=== PATIENT | female | born 1995 | race Caucasian/White ===

== ENCOUNTER 2019-07-27 19:18 | Outpatient (CLI) | payer OTHER ==
--- NOTE | 2019-07-29 23:52 | Ultrasound Report ---
Reason: TEST POSITIVE Procedure Date: 07/27/2019 Accession Number: [id number] / [id number] Procedure: US - OB First Trimester CPT Code: Final Report FULL RESULT: EXAM: FIRST TRIMESTER OBSTETRIC ULTRASOUND (Less than 11 weeks) EXAM DATE: 07/27/2019 07:31 PM. CLINICAL HISTORY: TEST POSITIVE. LMP: Unknown. COMPARISONS: None. TECHNIQUE: Transabdominal and transvaginal ultrasound examination with static image documentation. CLINICAL DATES: EGA 9 weeks 2 days with MARIAMA 02/27/2020 based on per ordering physician.. ASSESSMENT: Gestational Sac: Single intrauterine. Embryo: CRL (crown-rump length) 80 mm = 14 weeks 0 days. Cardiac activity: 149 beats per minute. Amniotic fluid: Not accurately assessed at this gestational age. Early placenta: Low anterior terminating approximately 1.6 cm from the internal cervical loss. Other: No perigestational fluid collection demonstrated. MATERNAL STRUCTURES: Uterus: Anteverted. Unremarkable. Cervix: Closed measuring 4.5 cm in length. Right Ovary/Adnexa: The ovary measures 2.1 x 2.1 x 2 cm, volume 4.6 cc. Unremarkable. Left Ovary/Adnexa: The ovary measures 2.2 x 1.9 x 2.2 cm, volume 4.9 cc. Unremarkable. Free Fluid: Trace simple-appearing free fluid in the cul-de-sac, likely physiologic. Other: None. IMPRESSION: 1. Single viable intrauterine at EGA 14 weeks 0 days with MARIAMA 01/25/2020 based on crown-rump length, which is discordant with clinical dates. 2. Assigned dating is MARIAMA 02/27/2020 based on report by ordering physician. Consider redating. 3. The placenta terminates approximately 1.6 cm from the internal cervical os concerning for low lying placenta. Recommend attention on follow-up. RADIA
== END 2019-07-27 19:19 | disposition home or self-care (01) ==
LOC: DI 19:18
PROVIDERS: ATTEND Nurse Practitioner Obstetrics & Gynecology
DX: Z32.01 Encounter for pregnancy test, result positive (principal)
CPT/HCPCS: 76801; 76817

== ENCOUNTER 2019-08-15 07:00 | Outpatient (CLI) | payer OTHER ==
[2019-08-15 15:53] LABS: MUDS CUTOFF CONCENTRATIONS CUTOFF CONC BELOW:
[2019-08-15 16:07] LABS: BILIRUBIN,URINE NEGATIVE (NEGATIVE); GLUCOSE, URINE (UA) NEGATIVE (NEGATIVE); KETONES,URINE (UA) NEGATIVE (NEGATIVE); LEUKOCYTE ESTERASE, URINE SMALL (NEGATIVE); NITRITE,URINE NEGATIVE (NEGATIVE); OCCULT BLOOD,URINE NEGATIVE (NEGATIVE); PROTEIN,URINE NEGATIVE (NEGATIVE); UROBILINOGEN,URINE 0.2 (NORMAL) E.U./dL (NORMAL)
[2019-08-15 16:16] LABS: AMPHETAMINE SCREEN,URINE NEGATIVE (NEGATIVE); BENZODIAZEPINES SCREEN, URINE NEGATIVE (NEGATIVE); COCAINE SCREEN URINE NEGATIVE (NEGATIVE); METHADONE SCREEN, URINE NEGATIVE (NEGATIVE); METHAMPHETAMINES SCREEN, URINE NEGATIVE (NEGATIVE); OPIATE SCREEN, URINE NEGATIVE (NEGATIVE); OXYCODONE SCREEN, URINE NEGATIVE (NEGATIVE); PROPOXYPHENE SCREEN, URINE NEGATIVE (NEGATIVE); TRICYCLIC ANTIDEPRESSANT,URINE NEGATIVE (NEGATIVE)
[2019-08-15 16:18] LABS: BACTERIA,URINE Few /HPF (None Seen); CLARITY,URINE CLEAR (CLEAR); RBC,URINE None Seen /HPF (0-5); SQUAMOUS EPITHELIAL CELL,UR MOD Squamous (<= Few)
== END 2019-08-15 23:59 | disposition home or self-care (01) ==
LOC: LAB.R 07:00
PROVIDERS: ATTEND Nurse Practitioner Obstetrics & Gynecology
DX: Z36.89 Encounter for other specified antenatal screening (principal)
CPT/HCPCS: 80306; 81001; 87086

== ENCOUNTER 2019-09-01 09:49 | Outpatient (CLI) | payer OTHER ==
[2019-09-01 10:19] LABS: BASOPHILS % (AUTO) 0.3 %; EOSINOPHILS # (AUTO) 0.1 10^3/uL (0.0-0.7); EOSINOPHILS % (AUTO) 1.4 %; HGB - HEMOGLOBIN 12.3 g/dL (12.0-16.0); LYMPHOCYTES # (AUTO) 1.4 10^3/uL (1.5-3.5); LYMPHOCYTES % (AUTO) 15.5 %; MEAN CORPUSCULAR HEMOGLOBIN 29.7 pg (27.0-31.0); MEAN CORPUSCULAR HGB CONC 33.3 g/dL (32.0-36.0); MEAN CORPUSCULAR VOLUME 89.1 fL (81.0-99.0); MEAN PLATELET VOLUME 9.7 fL (7.9-10.8); MONOCYTES # (AUTO) 0.6 10^3/uL (0.0-1.0); MONOCYTES % (AUTO) 6.1 %; NEUTROPHILS # (AUTO) 6.9 10^3/uL (1.5-6.6); NEUTROPHILS % (AUTO) 75.8 %; PLT - PLATELET COUNT 198 10^3/uL (130-450); RED BLOOD COUNT 4.14 10^6/uL (4.20-5.40); RED CELL DISTRIBUTION WIDTH 12.4 % (12.0-15.0); WHITE BLOOD COUNT 9.1 x10^3/uL (4.8-10.8)
[2019-09-02 12:29] LABS: HEPATITIS C ANTIBODY NON-REACTIVE (NON-REACTIVE)
[2019-09-02 12:30] LABS: HEPATITIS B SURFACE ANTIGEN NON-REACTIVE (NON-REACTIVE)
[2019-09-02 12:43] LABS: HIV AG/AB 4TH GEN NON-REACTIVE (NON-REACTIVE)
== END 2019-09-01 09:50 | disposition home or self-care (01) ==
LOC: LAB 09:49
PROVIDERS: ATTEND Nurse Practitioner Obstetrics & Gynecology
DX: Z36.89 Encounter for other specified antenatal screening (principal)
CPT/HCPCS: 36415; 81599; 85025; 86762; 86803; 86850; 86900; 86901; 87340; 87389

== ENCOUNTER 2019-09-12 09:57 | Outpatient (CLI) | payer OTHER ==
--- NOTE | 2019-09-14 15:49 | Ultrasound Report ---
Reason: SUPERV OF NORM FIRST , SCREENIN Procedure Date: 09/12/2019 Accession Number: [id number] / [id number] Procedure: US - OB Detailed Eval CPT Code: Final Report FULL RESULT: EXAM: COMPLETE OBSTETRICAL ULTRASOUND EXAM DATE: 09/12/2019 10:36 AM. CLINICAL HISTORY: anatomic survey. COMPARISON: OB FIRST TRIMESTER 07/27/2019 7:31 PM. TECHNIQUE: Real-time sonographic evaluation of the fetus performed by the clerk cashier. Multiple service support representative static images were saved for review. DATING: Established EGA 20 weeks 5 days with MARIAMA 01/25/2020 based on prior ultrasound. EGA 20 weeks 2 days with MARIAMA 6 2120 based on the current ultrasound. GENERAL EVALUATION Elong . Cardiac activity: 143 bpm. movement: Present Presentation: Variable Placenta: Anterior position. No evidence for previa. Umbilical cord: 3 vessel cord. Central placental cord origin. Amniotic fluid: Subjectively normal. MVP 5.9 cm. BIOMETRY Bi-Parietal Diameter (BPD): 4.7 cm, 20 weeks 2 days Head Circumference (HC): 17.7 cm, 20 weeks 1 days Abdominal Circumference (AC): 15.2 cm, 20 weeks 3 days Femur Length (FL): 3.2 cm, 20 weeks 0 days Estimated Weight: 342 g, 21st percentile for 20 weeks 5 days. ANATOMY The intracranial structures, profile, face/nose/lips, spine, 4 chamber heart and outflow tracts, stomach, abdominal wall and cord insertion, diaphragm, kidneys, bladder, and extremities were seen and demonstrate no abnormality. MATERNAL STRUCTURES Uterus: Unremarkable. Cervix: Long and closed. Transabdominal length 4.2 cm. Right ovary/adnexa: Unremarkable. Left ovary/adnexa: Unremarkable. Free fluid: None. IMPRESSION: 1. Leong intrauterine with gestational age 20 weeks 5 days based on first ultrasound. 2. Estimated weight is within expected limits for assigned dating. 3. Normal anatomic survey. No anatomic abnormalities are detected at this time. RADIA
== END 2019-09-12 09:58 | disposition home or self-care (01) ==
LOC: DI 09:57
PROVIDERS: ATTEND Nurse Practitioner Obstetrics & Gynecology
DX: Z34.00 Encounter for supervision of normal first pregnancy, unspecified trimester (principal); Z36.89 Encounter for other specified antenatal screening
CPT/HCPCS: 76811

== ENCOUNTER 2019-10-27 11:27 | Outpatient (CLI) | payer OTHER ==
[2019-10-27 12:49] LABS: HGB - HEMOGLOBIN 11.9 g/dL (12.0-16.0); MEAN CORPUSCULAR HEMOGLOBIN 30.1 pg (27.0-31.0); MEAN CORPUSCULAR HGB CONC 33.5 g/dL (32.0-36.0); MEAN CORPUSCULAR VOLUME 89.9 fL (81.0-99.0); MEAN PLATELET VOLUME 9.4 fL (7.9-10.8); RED BLOOD COUNT 3.95 10^6/uL (4.20-5.40); RED CELL DISTRIBUTION WIDTH 12.6 % (12.0-15.0)
== END 2019-10-27 11:28 | disposition home or self-care (01) ==
LOC: LAB 11:27
PROVIDERS: ATTEND Nurse Practitioner Obstetrics & Gynecology
DX: Z36.89 Encounter for other specified antenatal screening (principal)
CPT/HCPCS: 36415; 82950; 85027; 86850

== ENCOUNTER 2019-12-28 08:00 | Outpatient (CLI) | payer OTHER ==
[2019-12-28 21:21] LABS: TRICHOMONAS VAGINALIS DNA NEGATIVE (NEGATIVE)
== END 2019-12-28 23:59 | disposition home or self-care (01) ==
LOC: LAB.R 08:00
PROVIDERS: ATTEND Obstetrics & Gynecology
DX: Z36.85 Encounter for antenatal screening for Streptococcus B (principal)
CPT/HCPCS: 87491; 87591; 87661; 87797

== ENCOUNTER 2020-01-18 07:00 | Outpatient (CLI) | payer OTHER ==
[2020-01-18 21:23] LABS: CANDIDA GROUP DNA UNRESOLVED (NEGATIVE); CANDIDA KRUSEI DNA UNRESOLVED (NEGATIVE); TRICHOMONAS VAGINALIS DNA UNRESOLVED (NEGATIVE)
== END 2020-01-18 23:59 | disposition home or self-care (01) ==
LOC: LAB.R 07:00
PROVIDERS: ATTEND Advanced Practice Midwife
DX: Z34.00 Encounter for supervision of normal first pregnancy, unspecified trimester (principal)
CPT/HCPCS: 87661; 87801

== ENCOUNTER 2020-01-23 06:23 | Inpatient (IN) | payer OTHER ==
[2020-01-23] MEDS ORDERED: OXYTOCIN/SODIUM CHLORIDE 500 ML IV ONE (07:11)
[2020-01-23] MEDS ORDERED: LACTATED RINGERS 1,000 ML IV ONE ×4 (07:11→11:39)
[2020-01-23] MEDS ORDERED: LACTATED RINGERS 500 ML IV ONE (07:14)
--- NOTE | 2020-01-23 07:48 | HISTORY & PHYSICAL EXAMINATION ---
Admit History - : 1 Parity: 0 Premature: 0 Ectopic: 0 : 0 Care: positive: [facility] Risk/History: positive: None Complications This : positive: None Smoking Status: Never smoker - Mother's Labs Mother's Blood Type: positive: A Mother's RH: positive: Positive GBS: positive: Group B Strep Positive Rubella Status: positive: Immune - Other Maternal History Other Maternal History: Gaby is a 25yo at 39.5wks gestation who presents for a pre- induction cervical ripening induction Denies ctx, +FM; -VB; -LOF Care- [facility]- adequate complications -GBS positive Dating Criteria Initial U/S: LMP unsure. 07/27/2019 @ 14.0wks gestation dates with MARIAMA 01/25/2020. OB Hx -G1:Current Medications- - with iron- daily Allergies -none Medical History -none Surgical History -none Family History -MGF- lung cancer Social History - Never Smoker -Spouse: Manfred Labs -A positive/Rubella immune - Genetic- Quad negative - GBS- positive IPAP - Glucola- 116 Immunizations - TDAP 10/31/2019 Physical Exam -Vertex by BSUS SVE -1.5/80/0/soft/posterior -Parikh Score: 8 Assessment -25yo at 39.5wks gestation who presents for pre-induction cervical ripening Plan -Admit to OBS(until active labor, SROM, AROM, epidural, or pitocin) - Monitoring- ContinuousSteward3 - Anticipate Addendum: FHT's in 140s with moderate variability accels and no decels on admit Following first ctx at approx 0700 fht's decelerated to the 60s and did not fully recover for six minutes Position changes and scalp stim performed IV access obtained and LR bolus of 500mL started Heart tones recovered with moderate variability to the 140s. MD consulted Induction suspended until reassuring strip Review of Systems - Constitutional Constitutional: denies: Fatigue, Fever, Chills, Weakness, Diaphoresis - Eyes Eyes: denies: Blurred vision, Spots in vision, Vision loss - Ears, Nose & Throat Ears, Nose & Throat: denies: Hearing loss, Vertigo, Nasal obstruction, Nasal congestion, Postnasal drainage - Cardiovascular Cariovascular: denies: Irregular heart rate, Palpitations, Chest pain - Respiratory Respiratory: denies: Cough, SOB at rest - Genitourinary Genitourinary: denies: Frequency, Urgency - Musculoskeletal Musculoskeletal: denies: Stiffness - Integumentary Integumentary: denies: Pruritis, Lesions - Neurological Neurological: denies: General weakness, Headache, Dizziness - Psychiatric Psychiatric: denies: Depression, Anxiety Physical - Abdominal Exam Vital Signs: Temp Pulse Resp BP Pulse Ox 36.5 C 54 L 16 108/73 01/23/20 06:50 01/23/20 06:50 01/23/20 06:50 01/23/20 06:50 : infrequent Contraction Intensity: positive: Mild Uterine Resting Tone: positive: Soft
[2020-01-23] MEDS ORDERED: CITRIC ACID/SODIUM CITRATE 15 ML UDC PO ONE ×3 (07:58→08:06)
--- NOTE | 2020-01-23 08:02 | ANESTHESIA ---
Pre-Anesthesia VS, & Labs - Diagnosis IUP - Procedure C-Sec Vital Signs: Temp Pulse Resp BP Pulse Ox 36.8 C 54 L 16 108/73 01/23/20 07:24 01/23/20 06:50 01/23/20 06:50 01/23/20 06:50 Height 5 ft 7 in Weight (kg) 83.461 kg - NPO Other (had a banana at 0530) - Is Patient ?: Yes Anes History & Medical History - Anesthetic History Anesthesia Complications: reports: No previous complications Family history of Anesthesia Complications: Denies Family history of Malignant Hyperthermia: Denies - Medical History Cardiovascular: reports: None Pulmonary: reports: None Gastrointestinal: reports: None Urinary: reports: None Neuro: reports: None Musculoskeletal: reports: None Endocrine/Autoimmune: reports: None Blood Disorders: reports: None Skin: reports: None Smoking Status: Never smoker Psychosocial: reports: No issues indicated - Obstetrical History : 1 Parity: 0 Events: positive: None Complications: positive: None Exam General: Alert, Oriented x3, Cooperative, No acute distress Dental: WNL Mouth Openin Fingerbreadth Neck Mobility: Normal Mallampati classification: II Thyromental Distance: 4-6 cm Respiratory: Lungs clear, Normal breath sounds, No respiratory distress, No accessory muscle use Cardiovascular: Regular rate, Normal S1, Normal S2, No murmurs Abdomen: Normal bowel sounds, Soft, No tenderness, No hepatospenomegaly, No masses Extremities: No clubbing, No cyanosis, No edema, Normal pulses, No tenderness/swelling Neurological: Normal gait, Normal speech, Strength at 5/5 X4 ext, Normal tone, Sensation intact, Cranial nerves 3-12 NL, Reflexes 2+ Mental/Cognitive Status: Alert/Oriented X3, Normal for patient Cognitive Status: Within normal limits Plan Anesthesia Type: Spinal Regional Block: Per Surgeon's request for Post Op pain control Consent for Procedure(s) Verified and Reviewed: Yes Code Status: Attempt Resuscitation ASA classification: 2-Mild systemic disease Is this case an emergency?: Yes
--- NOTE | 2020-01-23 08:03 | PROVIDER PROGRESS NOTE ---
Subjective - Prog Note Date Prog Note Date: 01/23/20 Prog Note Time: 08:03 - Subjective Subjective: 25yo G1 at 39w5d by 14 week scan and unknown LMP admitted for cervical ripening/IOL. During initial evaluation, patient noted to have spontaneous long deceleration. Ultimate recovery with moderate variability, accels, however with most subsequent contractions, patient noted to have smaller decelerations. Contractions very mild, not palpable by patient. No bleeding,pain or fluid leak. VSS afeb Category 2 as noted RESP/ CTA CV/ RRR 3/6 systolic murmur along upper left sternal border ABD/ Soft, non-tender, gravid. US: vertex, anterior (not low lying) placenta, normal amniotic fluid volume, no obvious nuchal cord or funic presentation. Labs sent, pending A/P 25yo G1 GBS+ at 39w5d with uncomplicated to this point, with positive ASSESSMENT CONSULTANT. Discussed options and risks with patient who elects to proceed with primary section. Objective - Vital Signs/Intake & Output Vital Signs: Vital Signs x48h Temp Pulse Resp BP 01/23/20 07:24 98.2 F 01/23/20 06:50 97.7 F 54 L 16 108/73
[2020-01-23] MEDS ORDERED: ceFAZolin 2 GM in SODIUM CHLORIDE 0.9% 100ML 100 ML IV ONE (08:04)
[2020-01-23] MEDS ORDERED: ceFAZolin 1 GM VIAL ONE (08:08)
[2020-01-23] MEDS ORDERED: CARBOPROST TROMETHAMINE 250 MCG/ML AMP IM ONE (08:09)
[2020-01-23] MEDS ORDERED: miSOPROStoL 200 MCG TABLET ONE (08:09)
[2020-01-23] MEDS ORDERED: METHYLERGONOVINE 0.2 MG/ML VIAL ONE (08:09)
[2020-01-23 08:29] LABS: BASOPHILS % (AUTO) 0.3 %; EOSINOPHILS # (AUTO) 0.1 10^3/uL (0.0-0.7); HGB - HEMOGLOBIN 12.9 g/dL (12.0-16.0); LYMPHOCYTES # (AUTO) 1.8 10^3/uL (1.5-3.5); LYMPHOCYTES % (AUTO) 19.7 %; MEAN CORPUSCULAR HEMOGLOBIN 29.3 pg (27.0-31.0); MEAN CORPUSCULAR VOLUME 86.1 fL (81.0-99.0); MEAN PLATELET VOLUME 10.6 fL (7.9-10.8); MONOCYTES # (AUTO) 0.8 10^3/uL (0.0-1.0); NEUTROPHILS # (AUTO) 6.4 10^3/uL (1.5-6.6); NEUTROPHILS % (AUTO) 68.8 %; PLT - PLATELET COUNT 209 10^3/uL (130-450); RED CELL DISTRIBUTION WIDTH 13.1 % (12.0-15.0); WHITE BLOOD COUNT 9.3 x10^3/uL (4.8-10.8)
[2020-01-23] MEDS ORDERED: ACETAMINOPHEN 1,000 MG/100 ML 100 ML IV ONE (09:05)
[2020-01-23] MEDS ORDERED: ROPIVACAINE 0.5% PF 20 ML AMPULE ONE (09:08)
[2020-01-23] MEDS ORDERED: ROPIVACAINE 0.2% PF 20ML VIAL ONE (09:08)
[2020-01-23] MEDS ORDERED: MAGNESIUM HYDROXIDE 2,400 MG/30 ML UDC PO PRN (10:06)
[2020-01-23] MEDS ORDERED: ONDANSETRON 4 MG/2 ML VIAL IVP PRN (10:06)
[2020-01-23] MEDS ORDERED: SODIUM CHLORIDE FLUSH 0.9% 10 ML SYRINGE IVP PRN (10:06)
[2020-01-23] MEDS ORDERED: HYDROmorphone 2 MG TABLET PO PRN (10:06)
[2020-01-23] MEDS ORDERED: ONDANSETRON ODT 4 MG TABLET TL PRN (10:06)
[2020-01-23] MEDS ORDERED: OXYTOCIN/SODIUM CHLORIDE 500 ML IV PRN (10:06)
[2020-01-23] MEDS ORDERED: diphenhydrAMINE 25 MG CAPSULE PO PRN (10:06)
[2020-01-23] MEDS ORDERED: diphenhydrAMINE INJ 50 MG/ML VIAL IVP PRN (10:06)
--- NOTE | 2020-01-23 10:33 | IMMEDIATE POSTOPERATIVE NOTE ---
Immediate Postoperative Note - Procedure Note Procedure Date: 01/23/20 Pre-Op Diagnosis: at 39w5d, non-reassuring status Procedure: Primary LTCS Post-Op Diagnosis: Same Primary Surgeon: Arti Raphael MD Web Developer Programmer: Dr See MD Anesthesia Type: Regional block, Spinal Findings: 3389gm male delivered from floating vertex ANGUS presentation with vacuum assist at 09:02 apgars 9/9. Placenta expressed intact with normal 3 vessel cord. Normal adnexae. 2x3cm exophytic serosal fibroid near left cornua, very small subserosal anterior fibroid. Complications: No complications Estimated Blood Loss (in cc): 450 Drains, Catheters, Devices: Urinary estrada Specimens and Cultures: Cord blood Plan of Care: Routine postop/ care
--- NOTE | 2020-01-23 10:36 | OPERATIVE REPORT ---
Operative Report - General Admit Date: 01/23/20 Planned Procedure: Unscheduled urgent primary section Pre-Op Diagnosis: at 39w5d, non-reassuring status Procedure Performed: Primary LTCS Post Op Diagnosis: Same - Procedure Note Primary Surgeon: Arti Raphael MD Secondary Surgeon: Dr Cui Anesthesia Provider: Eleno Jordan Anesthesia Technique: Regional block, Spinal Pathology: Cord blood IV Fluids (mL): 1,200 (LR) Estimated Blood Loss (mL): 450 Urine Output (mL): 200 (clear) Indications: Non-reassuring status, positive RENT COLLECTOR Findings: 3389gm male infant delivered from floating vertex ANGUS presentation with vacuum assist at 09:02 apgars 9/9. Placenta expressed intact, normal 3 vessel cord. Normal adnexae. 2x3cm subserosal fibroid near left cornua, small 1cm anterior subserosal fibroid Complications: None - Other Other Information/Narrative: Patient was brought to the operating room where spinal was placed. SCD's and a estrada catheter were placed. She received 2g Ancef. Her abdomen was washed previously and then she was prepped again and draped in usual fashion with a leftward tilt. A low transverse incision was made and carried to fascia with the Bovie. The fascia was sharply opened transversely. The upper edge was grasped with Kokers, elevated and dissected free using electrocautery. The same was done inferiorly. The rectus was sharply divided and the peritoneum entered. This was sharply extended with direct visualization of the bladder. The Yfn retractor was placed. The lower uterine segment was incised in low transverse fashion. It was opened bluntly in a cephalo-caudad manner. The fetus was noted to be floating with an extended head and required vacuum assistance to flex it into the hysterotomy. Delivery was accomplished with fundal pressure. Spontaneous cry was noted. The cord was milked, clamped and cut and he was handed off the field. Pitocin was started. The placenta was expressed intact. The margins of the hysterotomy were grasped and it was closed initally with 0-vicryl in a running locked fashion followed by a horizontal imbricating layer. Good hemostasis was observed. The retractor was removed. The rectus was reapproximated with two interrupted figure of eight stitches of 2-0 vicryl. No bleeding was noted. The fascia was closed with two 0-vicryl sutures in continuous fashion tied in the middle. The subcutaneous layer was closed in running fashion with 3-0 vicryl. A subcuticular stitch of 4-0 monocryl was placed and the skin was closed with Dermabond and steristrips. I performed the entire procedure.
--- NOTE | 2020-01-23 10:57 | DISCHARGE SUMMARY ---
"Discharge Summary Admit Date: 01/23/20 Discharge Date: 01/25/20 Discharging Provider: Arti Raphael Code Status: Attempt Resuscitation Condition at Discharge: Good Discharge Disposition: 01 Home, Self Care - DIAGNOSES Admission Diagnoses: at 39w5d, non-reassuring status, positive AIRCRAFT TECHNICIAN - HPI History of Present Illness: 25yo now P1 at 39w5d by 14 week scan and unknown LMP admitted for cervical ripening/IOL. During initial evaluation, patient noted to have spontaneous long deceleration. Ultimate recovery with moderate variability, accels, however with most subsequent contractions, patient noted to have smaller decelerations. Contractions very mild, not palpable by patient. No bleeding,pain or fluid leak. Secondary to recurrent decelerations, she was brought to the operating room where an uncomplicated LTCS was done. - CONSULTS | PROCEDURES Procedures: Primary LTCS - HOSPITAL COURSE Hospital Course: Patient was brought to the OR where she underwent an uncomplicated LTCS. She was delivered of a 3389gm male infant with vacuum assist apgars 9/9 on 616. EBL 450cc. Her postop course was uncomplicated. She was DC'd home on POD 2 with f/u scheduled. She is planning Nexplanon for contraception. - ALLERGIES Allergies/Adverse Reactions: Allergies Allergy/AdvReac Type Severity Reaction Status Date / Time No Known Drug Allergies Allergy Verified 01/23/20 08:10 - PHYSICAL EXAM AT DISCHARGE General Appearance: positive: No acute distress, Alert Respiratory: positive: No respiratory distress Abdomen: positive: Non-tender, No distention, Other (Fundus firm below umbilicus. Incision D&I without erythema or induration) Neurologic/Psychiatric: positive: Oriented x3, Mood/affect nml - LABS Result Diagrams: 01/23/20 07:08"
[2020-01-23] MEDS ORDERED: KETOROLAC 30 MG/ML VIAL IVP SCH (11:00)
[2020-01-23] MEDS ORDERED: NALBUPHINE 10 MG/ML AMP IVP ONE (11:02)
--- NOTE | 2020-01-23 11:39 | PROVIDER PROGRESS NOTE ---
Subjective - Prog Note Date Prog Note Date: 01/23/20 Prog Note Time: 11:36 - Subjective Subjective: Post op check Comfortable. Denies pain. Normal lochia. No n/v. VSS afeb UO first hour postop 100cc, last hour 35cc clear Abd soft, non-tender. Fundus firm below umbilicus SCDs in place. Scant lochia on pad. A/P Marginal urine output. Will give fluid bolus now, increase hourly rate and reassess. Otherwise stable. Continue routine care. Objective - Vital Signs/Intake & Output Vital Signs: Vital Signs x48h Temp Pulse Resp BP Pulse Ox 01/23/20 10:24 97.7 F 52 L 18 112/71 100 01/23/20 10:20 51 L 12 119/55 L 100 01/23/20 10:15 97.5 F L 55 L 13 114/73 100 01/23/20 10:10 97.5 F L 58 L 20 110/74 100 01/23/20 10:05 97.5 F L 52 L 15 110/74 100 01/23/20 10:00 54 L 18 115/65 100 01/23/20 09:56 98.4 F 54 L 12 123/72 55 L 01/23/20 07:24 98.2 F 01/23/20 06:50 97.7 F 54 L 16 108/73 - Lab Results Fish Bones: 01/23/20 07:08 Other Labs: Lab Results x24hrs 01/23/20 01/23/20 Range/Units 08:20 07:08 WBC 9.3 (4.8-10.8) x10^3/uL RBC 4.40 (4.20-5.40) 10^6/uL Hgb 12.9 (12.0-16.0) g/dL Hct 37.9 (37.0-47.0) % MCV 86.1 (81.0-99.0) fL MCH 29.3 (27.0-31.0) pg MCHC 34.0 (32.0-36.0) g/dL RDW 13.1 (12.0-15.0) % Plt Count 209 (130-450) 10^3/uL MPV 10.6 (7.9-10.8) fL Neut # (Auto) 6.4 (1.5-6.6) 10^3/uL Lymph # (Auto) 1.8 (1.5-3.5) 10^3/uL Piute # (Auto) 0.8 (0.0-1.0) 10^3/uL Eos # (Auto) 0.1 (0.0-0.7) 10^3/uL Baso # (Auto) 0.0 (0.0-0.1) 10^3/uL Absolute Nucleated RBC 0.00 x10^3/uL Nucleated RBC % 0.0 /100WBC Blood Type A POSITIVE Antibody Screen NEGATIVE
[2020-01-23] MEDS: LACTATED RINGERS 1,000 ML IV SCH ×2 (12:54→20:40)
--- NOTE | 2020-01-23 14:14 | PROVIDER PROGRESS NOTE ---
Subjective - Subjective Subjective: Excellent response to fluid challenge. Output now >200cc/hr Will decrease fluids and continue to follow Objective - Vital Signs/Intake & Output Vital Signs: Vital Signs x48h Temp Pulse Pulse Resp BP BP Pulse Ox 01/23/20 13:00 97.9 F 52 L 16 110/64 98 01/23/20 12:00 98.8 F 60 14 117/62 99 01/23/20 11:00 98.8 F 59 L 16 111/67 100 01/23/20 10:45 57 L 12 99/72 100 01/23/20 10:30 53 L 16 101/67 100 01/23/20 10:24 97.7 F 52 L 18 112/71 100 01/23/20 10:20 51 L 12 119/55 L 100 01/23/20 10:15 97.5 F L 55 L 13 114/73 100 01/23/20 10:10 97.5 F L 58 L 20 110/74 100 01/23/20 10:05 97.5 F L 52 L 15 110/74 100 01/23/20 10:00 54 L 18 115/65 100 01/23/20 09:56 98.4 F 54 L 12 123/72 55 L 01/23/20 07:24 98.2 F 01/23/20 06:50 97.7 F 54 L 16 108/73 Intake & Output: Intake & Output 01/20/20 01/21/20 01/22/20 01/23/20 23:59 23:59 23:59 23:59 Intake Total 1000 Output Total 900 Balance 100 - Lab Results Fish Bones: 01/23/20 07:08 Other Labs: Lab Results x24hrs 01/23/20 01/23/20 Range/Units 08:20 07:08 WBC 9.3 (4.8-10.8) x10^3/uL RBC 4.40 (4.20-5.40) 10^6/uL Hgb 12.9 (12.0-16.0) g/dL Hct 37.9 (37.0-47.0) % MCV 86.1 (81.0-99.0) fL MCH 29.3 (27.0-31.0) pg MCHC 34.0 (32.0-36.0) g/dL RDW 13.1 (12.0-15.0) % Plt Count 209 (130-450) 10^3/uL MPV 10.6 (7.9-10.8) fL Neut # (Auto) 6.4 (1.5-6.6) 10^3/uL Lymph # (Auto) 1.8 (1.5-3.5) 10^3/uL Blount # (Auto) 0.8 (0.0-1.0) 10^3/uL Eos # (Auto) 0.1 (0.0-0.7) 10^3/uL Baso # (Auto) 0.0 (0.0-0.1) 10^3/uL Absolute Nucleated RBC 0.00 x10^3/uL Nucleated RBC % 0.0 /100WBC Blood Type A POSITIVE Antibody Screen NEGATIVE
[2020-01-23] MEDS: KETOROLAC 30 MG/ML VIAL IVP SCH (16:58)
[2020-01-23] MEDS: ACETAMINOPHEN 500 MG TABLET PO PRN (23:23)
[2020-01-23] MEDS: IBUPROFEN 600 MG TABLET PO SCH (23:34)
[2020-01-24] MEDS: IBUPROFEN 600 MG TABLET PO SCH ×5 (05:37→23:47)
[2020-01-24] MEDS: ACETAMINOPHEN 500 MG TABLET PO PRN ×2 (08:00→17:58)
[2020-01-24] MEDS: DOCUSATE SODIUM 100 MG CAPSULE PO SCH ×3 (08:00→20:41)
--- NOTE | 2020-01-24 09:08 | PROVIDER PROGRESS NOTE ---
Subjective - Prog Note Date Prog Note Date: 01/24/20 Prog Note Time: 09:07 - Subjective Subjective: POD 1 Pain well controlled. Ambulating, voiding, kelly reg diet. Normal lochia. VSS afeb Abd soft, non-tender, fundus firm below umbilicus. Incision D&I, without erythema or induration. A/P Stable. Continue routine postop care. Objective - Vital Signs/Intake & Output Intake & Output: Intake & Output 01/21/20 01/22/20 01/23/20 01/24/20 23:59 23:59 23:59 23:59 Intake Total 2966.667 500 Output Total 2645 1150 Balance 321.667 -650 - Lab Results Fish Bones: 01/23/20 07:08 Other Labs: Lab Results x24hrs 01/23/20 Range/Units 08:20 Blood Type A POSITIVE Antibody Screen NEGATIVE
[2020-01-24] MEDS: SODIUM CHLORIDE FLUSH 0.9% 10 ML SYRINGE IVP SCH ×4 (18:11→18:14)
[2020-01-24] MEDS: SIMETHICONE CHEW 80 MG TABLET PO SCH ×5 (18:11→18:18)
[2020-01-24] MEDS: KETOROLAC 30 MG/ML VIAL IVP SCH ×3 (18:12→18:14)
[2020-01-24] MEDS: LACTATED RINGERS 1,000 ML IV SCH ×3 (18:12→18:14)
[2020-01-24] MEDS ORDERED: MORPHINE PF 5 MG/10 ML AMP EP ONE (18:40)
[2020-01-24] MEDS ORDERED: fentaNYL 100 MCG/2 ML VIAL IVP ONE (18:40)
[2020-01-25] MEDS: ACETAMINOPHEN 500 MG TABLET PO PRN ×2 (02:08→10:25)
[2020-01-25] MEDS: IBUPROFEN 600 MG TABLET PO SCH ×2 (06:54→13:10)
[2020-01-25 08:37] VITALS: BP 100/55
--- NOTE | 2020-01-25 09:08 | PROVIDER PROGRESS NOTE ---
Subjective - Prog Note Date Prog Note Date: 01/25/20 Prog Note Time: 09:06 - Subjective Subjective: POD 2 Feeling well. Ambulating, kelly reg diet. Min lochia. Breasfeeding well. VSS afeb Abd soft, non-tender. Fundus firm well below umbilicus. Incision D&I without erythema or induration A/P Stable. Plan DC home today. Planning Nexplanon for contraception. Objective - Vital Signs/Intake & Output Vital Signs: Vital Signs x48h Temp Pulse Resp BP Pulse Ox 01/25/20 08:15 98.2 F 52 L 18 100/55 L 100 01/25/20 03:45 97.7 F 50 L 16 115/64 100 Intake & Output: Intake & Output 01/22/20 01/23/20 01/24/20 01/25/20 23:59 23:59 23:59 23:59 Intake Total 2966.667 500 Output Total 2645 1150 Balance 321.669 -650 - Lab Results Fish Bones: 01/23/20 07:08
--- NOTE | 2020-01-25 09:15 | Discharge Plan ---
Discharge Plan Problem Reviewed?: Yes Disposition: Home, Self Care Condition: Good Prescriptions: HYDROmorphone [Dilaudid] 2 mg PO Q4HR PRN #25 tablet PRN Reason: Severe Pain Ibuprofen [Motrin] 600 mg PO Q6H PRN #30 tablet PRN Reason: Pain Diet: Regular Activity Restrictions: Pelvic rest, no lift >9lb Shower Restrictions: No Driving Restrictions: No Weight Bearing: Full Weight No Smoking: If you smoke, Please STOP! Call for help.
[2020-01-25] MEDS: DOCUSATE SODIUM 100 MG CAPSULE PO SCH (10:25)
== END 2020-01-25 13:15 | disposition home or self-care (01) | DRG 788 ==
LOC: WFO 06:23 → FBP 06:25 → WFO 09:09 → FBP 09:10
PROVIDERS: ADMIT Obstetrics & Gynecology; ATTEND Obstetrics & Gynecology
PROC: 10D00Z1 Extraction of Products of Conception, Low, Open Approach (ICD-10-PCS; principal; 2020-01-23 08:00)
DX: O99.824 Streptococcus B carrier state complicating childbirth (principal); O76 Abnormality in fetal heart rate and rhythm complicating labor and delivery; D25.2 Subserosal leiomyoma of uterus; Z37.0 Single live birth; Z3A.39 39 weeks gestation of pregnancy
CPT/HCPCS: 85025; 86850; 86900; 86901; A9270; J0131; J2795; J7120; 85027

== ENCOUNTER 2023-12-04 07:22 | Outpatient (CLI) | payer OTHER ==
--- NOTE | 2023-12-04 21:46 | Ultrasound Report ---
PROCEDURE: OB 1st Trimester INDICATIONS: POSITIVE TEST OUTSIDE/PRIOR DATING DATA: Last menstrual period (LMP): 09/13/2023. LMP-based estimated date of delivery (MARIAMA): 06/19/2024. First dating scan (date and location): 11/28/2023, [facility]. Estimated date of delivery (MARIAMA) from first dating scan: 07/03/2024. TECHNIQUE: Real-time scanning was performed of the fetus and maternal pelvic organs, with image documentation. COMPARISON: None. FINDINGS: Intrauterine gestational sac present. Embryo: 3.58 cm, 8 weeks, 6 days Heart rate: 166 bpm. Other: No perigestational fluid collection. Measurement variability in dating: +/- 4 weeks by LMP, +/- 7 days by mean sac diameter (use before 6 weeks gestation if crown-rump length not able to be measured), +/- 5 days by crown-rump length (6-12 weeks gestation). Maternal organs: Ovaries appear within normal limits. There is a right corpus luteal cyst which florian ures 0.9 x 1.7 x 1.1 cm. An echogenic 2.3 x 3.1 x 2.3 cm mass is visualized within the uterine fundus suggesting the presence of uterine fibroid. IMPRESSION: 1. Single live intrauterine gestation with a gestational age of 8 weeks, 6 days by crown-rump length. 2. Uterine fibroid. Reviewed by: Estella Pandey MD on 12/04/2023 9:45 PM PDT Approved by: Estella Pandey MD on 12/04/2023 9:45 PM PDT Station ID: [id number]
== END 2023-12-04 07:23 | disposition home or self-care (01) ==
LOC: DI 07:22
PROVIDERS: ATTEND Nurse Practitioner
DX: O34.11 Maternal care for benign tumor of corpus uteri, first trimester (principal); D25.9 Leiomyoma of uterus, unspecified; Z3A.08 8 weeks gestation of pregnancy

== ENCOUNTER 2024-01-27 09:02 | Outpatient (CLI) | payer OTHER ==
[2024-01-27 09:20] LABS: BASOPHILS % (AUTO) 0.3 %; EOSINOPHILS # (AUTO) 0.1 10^3/uL (0.0-0.7); HCT - HEMATOCRIT 35.4 % (37.0-47.0); HGB - HEMOGLOBIN 11.8 g/dL (12.0-16.0); LYMPHOCYTES # (AUTO) 1.4 10^3/uL (1.5-3.5); LYMPHOCYTES % (AUTO) 18.6 %; MEAN CORPUSCULAR HEMOGLOBIN 29.2 pg (27.0-31.0); MEAN CORPUSCULAR HGB CONC 33.3 g/dL (32.0-36.0); MEAN CORPUSCULAR VOLUME 87.6 fL (81.0-99.0); MEAN PLATELET VOLUME 9.5 fL (7.9-10.8); MONOCYTES # (AUTO) 0.4 10^3/uL (0.0-1.0); MONOCYTES % (AUTO) 4.8 %; NEUTROPHILS # (AUTO) 5.8 10^3/uL (1.5-6.6); NEUTROPHILS % (AUTO) 74.7 %; PLT - PLATELET COUNT 206 10^3/uL (130-450); RED BLOOD COUNT 4.04 10^6/uL (4.20-5.40); RED CELL DISTRIBUTION WIDTH 12.5 % (12.0-15.0); WHITE BLOOD COUNT 7.7 x10^3/uL (4.8-10.8)
[2024-01-28 03:10] LABS: HIV SCREEN 4TH GENERATION Non Reactive (Non Reactive)
[2024-01-28 04:12] LABS: HBsAG SCREEN Negative (Negative); RPR Non Reactive (Non Reactive)
[2024-01-28 13:11] LABS: VARICELLA-ZOSTER AB IGG 1310 index (Immune >165)
== END 2024-01-27 09:03 | disposition home or self-care (01) ==
LOC: LAB 09:02
PROVIDERS: ATTEND Nurse Practitioner
DX: Z34.90 Encounter for supervision of normal pregnancy, unspecified, unspecified trimester (principal)
CPT/HCPCS: 36415; 85025; 86592; 86762; 86787; 86803; 86850; 86900; 86901; 87340; 87389

== ENCOUNTER 2024-02-21 06:32 | Outpatient (CLI) | payer OTHER ==
--- NOTE | 2024-02-21 11:27 | Ultrasound Report ---
PROCEDURE: OB Anatomy Scan INDICATIONS: SUPERVISION OF OUTSIDE/PRIOR DATING DATA: Last menstrual period (LMP): 09/13/2023. LMP-based estimated date of delivery (MARIAMA): 06/19/2024. First dating scan (date and location): 12/04/2023. Estimated date of delivery (MARIAMA) from first dating scan: 07/03/2024. The below data below was generated using the ultrasound MARIAMA of 07/03/2024 TECHNIQUE: Real-time scanning was performed of the fetus, with image documentation and biometric measurements. Endovaginal scanning: Not performed. COMPARISON: None. FINDINGS: General: A single living intrauterine gestation is present. Presentation: Vertex Placenta: Placental position is fundal, without previa. There is a velamentous cord insertion. Cord inserts 4.1 cm from the anterior placental edge. Submembranous vessels connecting to the placenta a re seen. Amniotic fluid index: 14.3 cm, within normal limits for gestational age. Deepest pocket is 4.2 cm. heart rate: 145 beats per minute. Maternal cervical canal: Closed and 5.2 cm long; normal length is 2.5 cm or more. Small anterior my ometrial uterine fibroid measuring 3.4 cm. biometrics: Biparietal diameter: 4.9 cm, 20 weeks 5 days, 35th percentile Head circumference: 18.5 cm, 20 weeks 6 days, 35th percentile Abdominal circumference: 16.1 cm, 21 weeks 1 day, 49th percentile Femur length: 3.5 cm, 21 weeks 0 days, 41st percentile Estimated gestational age from initial scan: 21 weeks 0 days Composite gestational age from present scan: 21 weeks 0 days Estimated weight and percentile: 396 g, 48th percentile Measurement variability in biometric dating: +/- 10 days from 12-20 weeks gestation, +/- 2 weeks from 20-30 weeks gestation, +/- 3 weeks at 30 weeks gestation or later. Anatomic survey: Neuro: Ventricles are normal at less than 10 mm. Cisterna magna is normal at 3-11 mm. Cerebellum i s normal in size and morphology. Nuchal skin fold: Normal at less than 6 mm between 14 and 20 weeks gestational age. Face: Nose and lips, facial profile are normal. Spine: No evidence for spina bifida. Heart: 4-chambered heart is present. Ventricular outflow tracts were not well seen due to posi tion. Diaphragm: Diaphragm is intact. Stomach: Left-sided stomach is present. Kidneys: No hydronephrosis. Normal is less than 5 mm in 2nd trimester, less than 7 mm in 3rd trimester. Cord: 3 vessel cord has normal insertion. Bladder: Normal in size. Extremities: All 4 extremities are visualized. IMPRESSION: Single live intrauterine with appropriate growth compared to the final MARIAMA. Estimated weight at the 48th percentile. Cardiac ventricular outflow tracts were not well seen. Otherwise normal anatomy. Short-term fol low-up is recommended to assess cardiac outflow tracts. There is a fundal placenta with a velamentous cord insertion anteriorly. Closed cervix and normal amniotic fluid volume. Reviewed by: Allyson Bridges MD on 02/21/2024 11:26 AM PDT Approved by: Allyson Bridges MD on 02/21/2024 11:26 AM PDT Station ID: [id number]
== END 2024-02-21 06:33 | disposition home or self-care (01) ==
LOC: DI 06:32
PROVIDERS: ATTEND Nurse Practitioner
DX: O43.122 Velamentous insertion of umbilical cord, second trimester (principal); Z3A.21 21 weeks gestation of pregnancy

== ENCOUNTER 2024-03-06 13:41 | Outpatient (CLI) | payer OTHER ==
--- NOTE | 2024-03-06 15:22 | Ultrasound Report ---
PROCEDURE: OB Follow up INDICATIONS: SUPERVISION OF OUTSIDE/PRIOR DATING DATA: Last menstrual period (LMP): 09/13/2023. LMP-based estimated date of delivery (MARIAMA): 06/19/2024. First dating scan (date and location): 12/04/2023. Estimated date of delivery (MARIAMA) from first dating scan: 07/03/2024. TECHNIQUE: Real-time scanning was performed of the fetus, with image documentation and biometric measurements. Endovaginal scanning: Not performed. COMPARISON: 02/21/2024 FINDINGS: General: A single living intrauterine gestation is present. Presentation: Breech Placenta: Placental position is right fundal, without previa. Amniotic fluid index: 14.6 cm, at the 50th percentile for gestational age. heart rate: 143 beats per minute. Maternal cervical canal: 4.9 cm long; normal length is 2.5 cm or more. Anterior uterine fibroid. Estimated gestational age from initial scan: 23 weeks 0 days Measurement variability in biometric dating: +/- 10 days from 12-20 weeks gestation, +/- 2 weeks from 20-30 weeks gestation, +/- 3 weeks at 30 weeks gestation or more. Other: Limited survey of anatomy includes normal four-chamber heart view, left and right ventri cular outflow tracts. There is a velamentous cord insertion.. IMPRESSION: 1. Single living intrauterine gestation. 2. Velamentous cord insertion. 3. Otherwise normal limited anatomic survey as above. Reviewed by: Juanjo Jackson MD on 03/06/2024 3:21 PM PDT Approved by: Juanjo Jackson MD on 03/06/2024 3:21 PM PDT Station ID: [id number]
== END 2024-03-06 13:42 | disposition home or self-care (01) ==
LOC: DI 13:41
PROVIDERS: ATTEND Nurse Practitioner
DX: O43.122 Velamentous insertion of umbilical cord, second trimester (principal); Z3A.23 23 weeks gestation of pregnancy

== ENCOUNTER 2024-03-23 08:00 | Outpatient (CLI) | payer OTHER ==
[2024-03-23 23:12] LABS: BACTERIAL VAGINOSIS DNA NEGATIVE (NEGATIVE); CANDIDA GLABRATA DNA NEGATIVE (NEGATIVE); CANDIDA GROUP DNA POSITIVE (NEGATIVE); CANDIDA KRUSEI DNA NEGATIVE (NEGATIVE); TRICHOMONAS VAGINALIS DNA NEGATIVE (NEGATIVE)
== END 2024-03-23 23:59 | disposition home or self-care (01) ==
LOC: LAB.WC 08:00
PROVIDERS: ATTEND Obstetrics & Gynecology
DX: N76.0 Acute vaginitis (principal)
CPT/HCPCS: 81514

== ENCOUNTER 2024-04-07 09:47 | Outpatient (CLI) | payer OTHER ==
[2024-04-07 11:05] LABS: HCT - HEMATOCRIT 32.9 % (37.0-47.0); HGB - HEMOGLOBIN 11.1 g/dL (12.0-16.0); MEAN CORPUSCULAR HEMOGLOBIN 29.8 pg (27.0-31.0); MEAN CORPUSCULAR HGB CONC 33.7 g/dL (32.0-36.0); MEAN CORPUSCULAR VOLUME 88.4 fL (81.0-99.0); MEAN PLATELET VOLUME 9.5 fL (7.9-10.8); RED BLOOD COUNT 3.72 10^6/uL (4.20-5.40); RED CELL DISTRIBUTION WIDTH 12.1 % (12.0-15.0); WHITE BLOOD COUNT 8.3 x10^3/uL (4.8-10.8)
[2024-04-08 07:10] LABS: RPR Non Reactive (Non Reactive)
== END 2024-04-07 09:48 | disposition home or self-care (01) ==
LOC: LAB 09:47
PROVIDERS: ATTEND Obstetrics & Gynecology
DX: Z34.90 Encounter for supervision of normal pregnancy, unspecified, unspecified trimester (principal)
CPT/HCPCS: 36415; 82950; 85027; 86592

== ENCOUNTER 2024-06-27 06:56 | Inpatient (IN) ==
--- NOTE | 2024-06-27 07:46 | HISTORY & PHYSICAL EXAMINATION ---
Admit History Smoking Status: Never smoker Other Maternal History Other Maternal History: Patient is a 29-year-old -0-0-1 at 39 weeks 1 day gestation presenting for repeat section. She has good movement. Denies loss of fluid. No KUO/BV or RUQP. No vaginal bleeding. Denies nausea and vomiting. Denies urinary urgency or dysuria. History: LMP: 09/13/2023 MARIAMA by LMP:06/19/2024 11/28/2023 /8+6/ NOT C/W dates (MARIAMA by u/s 07/03/2024) Final MARIAMA: 07/03/2024 FHT: 166 Problems: [facility], intolerance early during IOL at 39w5d. Plan rCS. - Velementous cord insertion- weekly NSTs 36wk, growth US ordered at 34 wk visit. - Uterine fibroid 2.3x3.1x2.3 Son: 4 yo- normal . This is a boy also, excited. FOB: Manfred () Blood type: A+ Antibody: negative CBC: PLT 209 HCT 37.9 HGB 12.9 RUB: immune VZV: immune HBsAg: negative HepC: NR RPR/AB-EIA: NR HIV: NR PAP: 12/31/23 normal GC/CT: negative HSV: denies in self and partner Genetic testing: declines Covid:no Vax, no virus, declines Flu:no, declines RSV 06/07/24 FAS:02/20 Placenta:fundal w/o previa Cord:3VC RISHABH:14.3cm EFW:396g 48th%ile Cardiac ventricular outflow not well seen Velementous cord insertion F/U 06/07/2024- velementous cord seen again. EFW lower at 16.7% MFM referral placed 50gm OGCT: 125 3HR GTT: TDAP: 04/21/2024 Breast Pump: accepts 05/05 RPR NR 3rd trimester PLT 207 HCT 32.9 HGB 11.1 GBS: 06/07- Negative NST Procedure NST Procedure: FHT: 120 bpm baseline, moderate variability, accelerations present, no de celerations. Reactive NST [place]ille: Quiescent Meds/Allgy Home Medications Ambulatory Orders Medication Instructions Recorded Confirmed acetaminophen 325 mg capsule 325 mg PO Q6H PRN 05/19/24 06/21/24 (Tylenol) calcium carbonate (Tums) 200 mg PO QDAY 05/19/24 06/21/24 vitamin#30 30 mg iron-10 cap PO 05/19/24 06/21/24 mg iron-folic acid 1 mg-omg3 capsule ferrous sulfate 325 mg (65 mg 325 mg PO QDAY 06/21/24 06/21/24 iron) tablet Allergies Allergies Allergy/AdvReac Type Severity Reaction Status Date / Time No Known Drug Allergies Allergy Verified 06/21/24 11:32 PENDING SALE TO [facility] Medical History Medical History (Updated 06/27/24 @ 07:55 by Reagan Morel MD) Thoracic back pain (04/21/23) Vaginitis Surgical History Surgical History (Updated 05/19/24 @ 12:41 by Yecenia Harper MA) History of delivery Social History Social History Smoking Status: Never smoker Relationship: Spouse Physical Other Notes Labor Progress Note/Additional Text: General: Alert, oriented, no acute distress Head: Normal cephalic atraumatic Eyes: PERRLA, extraocular motions intact. Respiratory: Normal rate of respiration. No accessory muscle use, normal respiratory effort. Cardiovascular: Regular rate and rhythm Abdomen: Gravid, nontender, nondistended Extremities: Normal range of motion Neuro: Oriented x3. Normal movements Psych: Appropriate mood and affect. Normal judgment and insight Plan for Labor Plan For Labor I expect patient to be DC'd or transferred within 96 hours.: Yes Conclusion/Plan Problem List (1) Maternal care for low transverse scar from previous delivery: Plan: - section was recommended. Risks, benefits and alternatives were discussed including but not limited to infection, bleeding that may require blood products or hysterectomy for life saving measures, injury to surrounding organs including but not limited to bowel, bladder, ureters, tubes and ovaries and/or the baby. Should injury occur it could require longer/additional surgery to repair. The patient stated understanding and desired to proceed. All questi ons were answered posed by patient. -Admit labs, plan for spinal anesthesia. 2 g cefazolin for surgical prophylaxis. (2) Supervision of normal : Plan: As above Qualifiers: Trimester: third trimester (3) 39 weeks gestation of : Plan: As above
[2024-06-27] MEDS: CITRIC ACID/SODIUM CITRATE 15 ML UDC PO ONE (07:51)
[2024-06-27] MEDS: LACTATED RINGERS 1,000 ML IV SCH (07:52)
[2024-06-27] MEDS: ACETAMINOPHEN 500 MG TABLET PO ONE (07:52)
[2024-06-27] MEDS ORDERED: OXYTOCIN/SODIUM CHLORIDE 500 ML IV ONE (07:53)
[2024-06-27 07:59] LABS: BASOPHILS % (AUTO) 0.2 %; EOSINOPHILS # (AUTO) 0.1 10^3/uL (0.0-0.7); EOSINOPHILS % (AUTO) 1.2 %; HCT - HEMATOCRIT 35.2 % (37.0-47.0); HGB - HEMOGLOBIN 11.5 g/dL (12.0-16.0); LYMPHOCYTES # (AUTO) 1.5 10^3/uL (1.5-3.5); LYMPHOCYTES % (AUTO) 18.6 %; MEAN CORPUSCULAR HEMOGLOBIN 27.8 pg (27.0-31.0); MEAN CORPUSCULAR HGB CONC 32.7 g/dL (32.0-36.0); MEAN CORPUSCULAR VOLUME 85.2 fL (81.0-99.0); MEAN PLATELET VOLUME 10.6 fL (7.9-10.8); MONOCYTES # (AUTO) 0.6 10^3/uL (0.0-1.0); MONOCYTES % (AUTO) 7.4 %; NEUTROPHILS # (AUTO) 5.9 10^3/uL (1.5-6.6); NEUTROPHILS % (AUTO) 71.5 %; PLT - PLATELET COUNT 205 10^3/uL (130-450); RED BLOOD COUNT 4.13 10^6/uL (4.20-5.40); RED CELL DISTRIBUTION WIDTH 13.2 % (12.0-15.0); WHITE BLOOD COUNT 8.3 x10^3/uL (4.8-10.8)
[2024-06-27] MEDS ORDERED: miSOPROStoL 200 MCG TABLET ONE (08:27)
[2024-06-27] MEDS ORDERED: METHYLERGONOVINE 0.2 MG/ML VIAL ONE (08:27)
[2024-06-27] MEDS ORDERED: CARBOPROST TROMETHAMINE 250 MCG/ML VIAL IM ONE (08:27)
[2024-06-27] MEDS ORDERED: fentaNYL 100 MCG/2 ML VIAL ONE (08:28)
[2024-06-27] MEDS ORDERED: ONDANSETRON 4 MG/2 ML VIAL ONE (08:28)
[2024-06-27] MEDS ORDERED: ACETAMINOPHEN 1,000 MG/100 ML 1,000 MG/100 ML BAG IV ONE (09:02)
[2024-06-27] MEDS ORDERED: DEXAMETHASONE 4 MG/ML VIAL ONE (09:17)
[2024-06-27] MEDS ORDERED: ROPIVACAINE 0.5% PF 20 ML VIAL ONE (09:17)
[2024-06-27] MEDS ORDERED: SODIUM CHLORIDE 0.9% 10 ML VIAL IVP ONE (09:17)
[2024-06-27] MEDS ORDERED: ONDANSETRON ODT 4 MG TABLET TL PRN (09:38)
[2024-06-27] MEDS ORDERED: SIMETHICONE CHEW 80 MG TABLET PO PRN (09:38)
--- NOTE | 2024-06-27 09:44 | OPERATIVE REPORT ---
Operative Report General Admit Date: 06/27/24 Procedure Data: Operation Date: 06/27/24 08:30 Proposed Procedures p Section(Not Applicable) - Reagan Morel MD Actual Procedures p Section(Not Applicable) - Reagan Morel MD Pre-Op Diagnosis: C Section Anesthesia Type Spinal Case Staff Anesthesia Provider: Dottie Brewer Assisting Provider: Marquise Coburn Case Times Procedure Start: 06/27/24 08:57 Time out: 06/27/24 08:56 Tourniquet Tourniquet #: Tourniquet Site Padding: Pressure: Applied by: Time up #1: Time Down #1: Time Up #2: Time Down #2: Pre-Op Diagnosis: Previous low-transverse section 39 weeks gestation Post Op Diagnosis: Status post repeat low-transverse section Procedure Note Intake, IV Amount (ml): 1,650 Estimated Blood Loss (ml): 700 Output, Urine Amount (ml): 100 Pathology: None Findings: Multiple small fibroids on the uterine serosa. Velamentous cord insertion. Normal-appearing ovaries Complications: None Other Other Information/Narrative: Preoperative diagnoses: Previous low-transverse section x 1 39 weeks gestation Postoperative diagnoses Same Status post repeat low-transverse section Delivery of live crowell section was recommended. Risks, benefits and alternatives were discussed including but not limited to infection, bleeding that may require blood products or hysterectomy for life saving measures, injury to surrounding organs including but not limited to bowel, bladder, ureters, tubes and ovaries and/or the baby. Should injury occur it could require longer/additional surgery to repair. The patient stated understanding and desired to proceed. All questions were answered posed by patient. Prior to being taken to the OR, 2 grams of cefazolin IV was administered. The patient was taken to the operating room where regional anesthesia was found to be adequate. She was then prepared and draped in the usual sterile fashion in the dorsal supine position with a leftward tilt displacing the uterus. Nava was draining to gravity. SCDs were on bilateral lower extremities. Time out was taken. A pfannenstiel skin incision was then made with the scalpel and carried through to the underlying layer of fascia. The fascia was incised in the midline and the incision extended laterally with the Batista scissors. The superior aspect of the facial incision was then grasped with the Cassandra clamps, elevated and the underlying rectus muscles dissected off sharply. Attention was then turned to the inferior aspect of this incision which in a similar fashion was grasped, elevated with the Cassandra clamps and the rectus muscle dissected off sharply. The rectus muscles were in the midline. The peritoneum identified, grasped with the pick-ups and entered sharply with the Metzenbaum scissors. The peritoneal incision was then extended superiorly and inferiorly with good visualization of the bladder. The bladder blade was inserted. The vesicouterine peritoneum was identified, grasped with the pick-ups, and entered sharply with Metzenbaum scissors. This incision was then extended laterally and the bladder flap created digitally. The bladder blade was reinserted. The lower uterine segment was identified and incised in a transverse fashion with the scalpel. The uterine incision was then extended bluntly laterally. Artificial rupture of membranes demonstrated clear fluid. The bladder blade was removed. The fetus was in a cephalic presentation. The infants head delivered atraumatically. The anterior shoulders were delivered followed by the posterior shoulders then the remainder of the body. The infants mouth and nose were bulb suctioned. The umbilical cord was clamped times two and cut. The infant was handed to the pediatric team. The placenta was removed with gentle traction, and one of the velamentous insertion points ruptures, but was removed easil. Oxytocin was added to the IV fluid and was allowed to run freely. The uterus was exteriorized and cleared of all clots and debris. The uterine incision was inspected and found to be without any extensions and was repaired with 0 Vicryl in a running, locked fashion. A second imbricating layer was performed. 2 areas of bleeding required additional [id number] stitches. Upon inspection, the repaired hysterotomy was found to be hemostatic. The uterus was firm and returned to the abdomen. The gutters were cleared of all clots and debris. The muscle layer was examined and found to be hemostatic. The fascia was reapproximated with 0 Vicryl in a running fashion. The subcutaneous tissue was closed with 2-0 Vicryl. The skin was closed in a subcuticular fashion with 4-0 Monocryl. The patient tolerated the procedure well. Sponge, lap and needle counts were correct times three. The patient was taken to the recovery room in stable condition. I appreciate the assistance of Dr. Coburn during this procedure, and the assistance in retraction, visualization, dissection, and overall assistance during the case were instrumental to the patient's wellbeing.
[2024-06-27] MEDS: OXYTOCIN/SODIUM CHLORIDE 500 ML IV PRN (10:00)
[2024-06-27] MEDS ORDERED: LACTATED RINGERS 1,000 ML IV SCH ×2 (10:00→11:00)
[2024-06-27] MEDS ORDERED: HYDROmorphone 0.5 MG/0.5 ML SYRINGE IVP PRN (10:15)
[2024-06-27] MEDS ORDERED: ATROPINE ABBOJECT 1 MG/10 ML SYRINGE IVP PRN (10:15)
[2024-06-27] MEDS ORDERED: ONDANSETRON 4 MG/2 ML VIAL IVP PRN (10:15)
[2024-06-27] MEDS ORDERED: METOCLOPRAMIDE 10 MG/2 ML VIAL IVP PRN (10:15)
[2024-06-27] MEDS ORDERED: MORPHINE 2 MG/ML CARPUJECT IVP PRN (10:15)
[2024-06-27] MEDS ORDERED: NALOXONE 0.4 MG/ML VIAL IVP PRN (10:15)
[2024-06-27] MEDS ORDERED: ePHEDrine 50 MG/ML VIAL IVP PRN (10:15)
[2024-06-27] MEDS ORDERED: fentaNYL 100 MCG/2 ML VIAL IVP PRN (10:15)
--- NOTE | 2024-06-27 10:16 | ANESTHESIA PROCEDURE NOTE ---
Pre-Anesthesia VS, & Labs Diagnosis Surgical Diagnosis:: previous C/S Procedure Procedure: repeat C/S Vitals Vital Signs: Temp Pulse Resp BP Pulse Ox 36.7 C 62 17 109/54 L 97 06/27/24 07:27 06/27/24 10:10 06/27/24 10:10 06/27/24 10:10 06/27/24 10:10 NPO NPO: >8 hours Is Patient ?: Yes Lab Results Current Lab Results: Laboratory Tests 06/27/24 07:20: WBC 8.3, RBC 4.13 L, Hgb 11.5 L, Hct 35.2 L, MCV 85.2, MCH 27.8, MCHC 32.7, RDW 13.2, Plt Count 205, MPV 10.6, Neut # (Auto) 5.9, Lymph # (Auto) 1.5, [place] # (Auto) 0.6, Eos # (Auto) 0.1, Baso # (Auto) 0.0, Absolute Nucleated RBC 0.00, Nucleated RBC % 0.0, Blood Type A POSITIVE, Antibody Screen NEGATIVE 06/27/24 07:20 Meds/Allgy Home Medications Ambulatory Orders Medication Instructions Recorded Confirmed calcium carbonate (Tums) 200 mg PO QDAY 05/19/24 06/27/24 vitamin#30 30 mg iron-10 1 cap PO DAILY 05/19/24 06/27/24 mg iron-folic acid 1 mg-omg3 capsule ferrous sulfate 325 mg (65 mg 325 mg PO QDAY 06/21/24 06/27/24 iron) tablet acetaminophen 325 mg capsule 325 mg PO Q6H PRN fever or pain 06/27/24 06/27/24 Allergies Allergies Allergy/AdvReac Type Severity Reaction Status Date / Time No Known Drug Allergies Allergy Verified 06/21/24 11:32 [facility] Medical History Medical History (Updated 06/27/24 @ 10:01 by Reagan Morel MD) 39 weeks gestation of Maternal care for low transverse scar from previous delivery Supervision of normal (11/26/23) headache in third trimester Compression of sciatic nerve Velamentous insertion of umbilical cord Thoracic back pain (04/21/23) Vaginitis Surgical History Surgical History (Updated 05/19/24 @ 12:41 by Yecenia Harper MA) History of delivery Social History Social History Smoking Status: Never smoker Relationship: Spouse Anesthesia Exam (Expanded) Exam General: Alert, Oriented x3 and Cooperative Dental: WNL Mouth Openin Fingerbreadth Neck Mobility: Normal Mallampati classification: II Plan Problem List (1) Maternal care for low transverse scar from previous delivery: Plan: - section was recommended. Risks, benefits and alternatives were discussed including but not limited to infection, bleeding that may require blood products or hysterectomy for life saving measures, injury to surrounding organs including but not limited to bowel, bladder, ureters, tubes and ovaries and/or the baby. Should injury occur it could require longer/additional surgery to repair. The patient stated understanding and desired to proceed. All questions were answered posed by patient. -Admit labs, plan for spinal anesthesia. 2 g cefazolin for surgical prophylaxis. (2) Supervision of normal : Plan: As above Qualifiers: Trimester: third trimester (3) 39 weeks gestation of : Plan: As above Plan Anesthesia Type: Spinal and Transverse Abdominis Plane (TAP) Block Regional Block: Per Surgeon's request for Post Op pain control Consent for Procedure(s) Verified and Reviewed: Yes Code Status: Attempt Resuscitation ASA Classification ASA classification: 2-Mild systemic disease Is this case an emergency?: No
--- NOTE | 2024-06-27 10:45 | PHARMACY PROGRESS NOTE ---
Best Possible Medication History Admit Date and Time: 06/27/24 [id number] Home Medications Medication Instructions Recorded Confirmed Type calcium carbonate (Tums) 200 mg PO DAILY 05/19/24 06/27/24 History vitamin#30 30 mg iron-10 1 cap PO DAILY 05/19/24 06/27/24 History mg iron-folic acid 1 mg-omg3 capsule ferrous sulfate 325 mg (65 mg 325 mg PO DAILY 06/21/24 06/27/24 History iron) tablet acetaminophen 325 mg capsule 325 mg PO Q6H PRN fever or pain 06/27/24 06/27/24 History Processed by: Pharmacy (Medication Reconciliation completed by Stuffing Machine Operator) Medications reviewed in ED?: No Medication History completed: Yes Patient Interview: Completed Secondary Source(s): Insurance records [facility] Statement: As the person ultimately responsible for medication therapy, providers are able to order a medication from an existing home medication list in [facility] via the "Reconcile Routine" prior to Confirmation of that medication by application support analyst. Such practice is discouraged except when the physician, in their clinical judgment, deems that a medical need exists for a medication without regard to previous use.
--- NOTE | 2024-06-27 12:17 | ANESTHESIA POST OP EVALUATION ---
Anesthesia Post Eval Post Anesthesia Eval Vitals: Last Vital Signs Temp 36.5 C 06/27/24 10:33 Pulse 76 06/27/24 10:33 Resp 22 06/27/24 10:33 BP 113/69 06/27/24 10:33 Pulse Ox 97 06/27/24 10:33 CV Function Including HR & BP: Stable Pain Control: Satisfactory Nausea & Vomiting: Negative Mental Status: Baseline Respiratory Status: Airway Patent Hydration Status: Satisfactory Anesthesia Complications: None
[2024-06-27] MEDS: oxyCODONE 5 MG TABLET PO PRN (14:10)
[2024-06-27] MEDS: KETOROLAC 30 MG/ML VIAL IVP SCH (16:03)
[2024-06-27] MEDS: ceFAZolin (2G) 2 GM in SODIUM CHLORIDE 0.9% MINIBAG 100 ML IV ONE (16:07)
[2024-06-27] MEDS: DOCUSATE SODIUM 100 MG CAPSULE PO SCH (16:08)
[2024-06-27] MEDS: ACETAMINOPHEN 500 MG TABLET PO SCH (19:08)
[2024-06-28 06:34] LABS: HCT - HEMATOCRIT 30.7 % (37.0-47.0); HGB - HEMOGLOBIN 10.1 g/dL (12.0-16.0); LYMPHOCYTES % (AUTO) 13.7 %; MEAN CORPUSCULAR HEMOGLOBIN 29.3 pg (27.0-31.0); MEAN CORPUSCULAR HGB CONC 32.9 g/dL (32.0-36.0); MONOCYTES % (AUTO) 5.9 %; NEUTROPHILS % (AUTO) 79.4 %; PLT - PLATELET COUNT 158 10^3/uL (130-450); RED BLOOD COUNT 3.57 10^6/uL (4.20-5.40); RED CELL DISTRIBUTION WIDTH 13.4 % (12.0-15.0); WHITE BLOOD COUNT 13.7 x10^3/uL (4.8-10.8)
[2024-06-28 06:35] LABS: BASOPHILS % (AUTO) 0.1 %; EOSINOPHILS % (AUTO) 0.2 %; LYMPHOCYTES # (AUTO) 1.9 10^3/uL (1.5-3.5); MONOCYTES # (AUTO) 0.8 10^3/uL (0.0-1.0); NEUTROPHILS # (AUTO) 10.9 10^3/uL (1.5-6.6)
--- NOTE | 2024-06-28 09:04 | PROVIDER PROGRESS NOTE ---
Progress Note Progress Note Progress Note: Subjective Patient reports she is doing well. Lochia appropriate. Denies heavy bleeding. Ambulating. Pelvic and abdominal pain well-controlled. Tolerating oral intake. Diet: Regular. Voiding without difficulty. Passing flatus. Denies BM. Patient is bonding with baby, in room Breast feeding going well. Denies feeling lightheaded, dizzy or excessively fatigued. Objective Temp Pulse Resp BP Pulse Ox 36.7 C 53 L 16 108/61 98 06/28/24 05:23 06/28/24 05:23 06/28/24 05:23 06/28/24 05:23 06/28/24 05:23 General: Alert, oriented, no apparent distress. Cardiovascular: Regular rate. Regular rhythm. Lungs: No increased work of breathing. Abdomen: Uterus firm. Below umbilicus. No guarding or rebound. Extremities: No pain on palpation. No cords palpated. Distal pulses intact. Incision: Clean, dry, and intact. Bandage removed today Assessment and Plan day 1. -Routine care -Anticipate discharge tomorrow Status post repeat low-transverse section -Routine postop care -Incision appears intact, Steri-Strips in place.
[2024-06-28] MEDS: IBUPROFEN 600 MG TABLET PO SCH (12:23)
[2024-06-28 19:40] VITALS: O2SAT 99
--- NOTE | 2024-06-29 08:31 | PROVIDER PROGRESS NOTE ---
Progress Note Progress Note Progress Note: Subjective Patient reports she is doing well. Lochia appropriate. Denies heavy bleeding. Ambulating. Pelvic and abdominal pain well-controlled. Tolerating oral intake. Diet: Regular. Voiding without difficulty. Passing flatus. Denies BM. Patient is bonding with baby in room. Baby does have concerns for CCHD screen Breast feeding going well. Feeling engorged, working with nurses for breast- feeding Denies feeling lightheaded, dizzy or excessively fatigued. Objective General: Alert, oriented, no apparent distress. Cardiovascular: Regular rate. Regular rhythm. Lungs: No increased work of breathing. Abdomen: Uterus firm. Below umbilicus. No guarding or rebound. Extremities: No pain on palpation. No cords palpated. Distal pulses intact. Incision: Clean, dry, and intact. Assessment and Plan day 2. -Routine care -Anticipate discharge tomorrow
--- NOTE | 2024-06-29 10:08 | Discharge Summary ---
Discharge Summary ALLERGIES Allergies Allergy/AdvReac Type Severity Reaction Status Date / Time No Known Drug Allergies Allergy Verified 06/21/24 11:32 MEDICATIONS Ambulatory Orders Medication Instructions Recorded Confirmed calcium carbonate (Tums) 200 mg PO DAILY 05/19/24 06/27/24 vitamin#30 30 mg iron-10 1 cap PO DAILY 05/19/24 06/27/24 mg iron-folic acid 1 mg-omg3 capsule ferrous sulfate 325 mg (65 mg 325 mg PO DAILY 06/21/24 06/27/24 iron) tablet acetaminophen 325 mg capsule 325 mg PO Q6H PRN fever or pain 06/27/24 06/27/24 docusate sodium 100 mg capsule 100 mg PO DAILY #60 caps 06/29/24 ibuprofen 600 mg tablet 600 mg PO Q6HR #60 tabs 06/29/24 oxycodone 5 mg tablet 5 mg PO Q4HR PRN Moderate Pain 06/29/24 (Level 4-6) #15 tabs LABS 06/28/24 06:24 Discharge Plan Discharge Patient Disposition: 01 Home, Self Care Prescriptions: New docusate sodium 100 mg Capsule 100 mg PO DAILY Qty: 60 0RF ibuprofen 600 mg Tablet 600 mg PO Q6HR Qty: 60 0RF oxycodone 5 mg Tablet 5 mg PO Q4HR PRN (Reason: Moderate Pain (Level 4-6)) Qty: 15 0RF acetaminophen 500 mg Tablet 1,000 mg PO Q6HR Qty: 60 0RF Continued PNV #[id number] 30 mg iron-10 mg iron-1 mg capsule 1 cap PO DAILY ferrous sulfate 325 mg (65 mg iron) tablet 325 mg PO DAILY Discontinued acetaminophen 325 mg capsule 325 mg PO Q6H PRN (Reason: fever or pain) calcium carbonate [Tums] 200 mg calcium (500 mg) tablet,chewable 200 mg PO DAILY Diet: Regular Print Language: Lao Patient Instructions: Depression , C Section Dc Follow-up Care: Reagan Morel MD [Primary Care Provider] -
== END 2024-06-29 12:00 | disposition home or self-care (01) | DRG 788 ==
LOC: FBP 06:56
PROVIDERS: ADMIT Obstetrics & Gynecology; ATTEND Obstetrics & Gynecology
DX: O34.13 Maternal care for benign tumor of corpus uteri, third trimester; O34.211 Maternal care for low transverse scar from previous cesarean delivery; D25.2 Subserosal leiomyoma of uterus; O43.123 Velamentous insertion of umbilical cord, third trimester; N85.8 Other specified noninflammatory disorders of uterus; Z3A.39 39 weeks gestation of pregnancy; Z37.0 Single live birth